=== PATIENT | female | born 1980 | race Caucasian/White ===

== ENCOUNTER 2017-08-20 08:06 | Day surgery (SDC) | payer OTHER ==
[2017-08-20] MEDS ORDERED: Ringers Lactate 1,000 ML IV ONE ×3 (08:21→14:37)
[2017-08-20] MEDS ORDERED: SCOPOLAMINE HYDROBROMIDE PATCH TD ONE (08:21)
[2017-08-20] MEDS ORDERED: CEFAZOLIN/SWI 1gm 1 GM/10 ML SYR ONE (08:21)
[2017-08-20 08:24] LABS: Specific Gravity >= 1.030 (1.005-1.030)
[2017-08-20 08:26] LABS: Absolute Lymphocytes (CBC) 1.9 K/uL (0.7-4.9); Absolute Monocytes 0.4 K/uL (0.1-1.3); Basophils % 0.4 % (0-1.3); Eosinophils % 0.5 % (0-4.4); Hematocrit 40.7 % (36.0-45.0); Lymphocytes % 25.6 % (15.3-44.8); MCH 30.9 pg (27.0-35.0); MCV 94.2 fL (80-100); MPV 10.2 fL (7.6-11.3); Monocytes % 4.9 % (3.3-12.3); RBC Red Blood Cell Count 4.32 M/uL (3.86-4.86)
[2017-08-20] MEDS ORDERED: BACITRACIN 50000 UNIT VIAL ONE (09:01)
[2017-08-20] MEDS ORDERED: GENTAMICIN SULF 80 MG/2ML INJ ONE (09:01)
[2017-08-20] MEDS ORDERED: NS 0.9% VIAL 20 ML ONE (09:01)
[2017-08-20] MEDS ORDERED: CEFAZOLIN SODIUM 1 GM/VIAL ONE ×2 (09:01→12:10)
[2017-08-20] MEDS ORDERED: MIDAZOLAM HCL 2 MG/2 ML INJ ONE (09:02)
[2017-08-20] MEDS ORDERED: DEXAMETHASONE 10 MG/ML VIAL ONE (09:02)
[2017-08-20] MEDS ORDERED: PROPOFOL 200 MG/20 ML VIAL IV ONE (09:02)
[2017-08-20] MEDS ORDERED: LIDOCAINE 2% MPF 5 ML VIAL ONE (09:03)
[2017-08-20] MEDS ORDERED: ROCURONIUM 50 MG/5 ML VIAL IV ONE ×2 (09:03→10:57)
[2017-08-20] MEDS ORDERED: FENTANYL CITR 250 MCG/5 ML ONE (09:03)
[2017-08-20] MEDS ORDERED: ONDANSETRON HCL 40 MG/20 ML VIAL ONE ×2 (09:03→13:44)
[2017-08-20] MEDS ORDERED: LANO/MINERAL OIL/PETRO 3.5 GM ONE (09:51)
[2017-08-20] MEDS ORDERED: NA CHLORIDE 0.9% 1,000 ML ONE (10:28)
[2017-08-20] MEDS ORDERED: EPHEDRINE SULF 50 MG/ML SYR ONE (10:50)
[2017-08-20] MEDS ORDERED: NS 0.9% VIAL 10 ML ONE (12:10)
[2017-08-20] MEDS ORDERED: KETOROLAC 30 MG/ML INJ ONE (13:43)
[2017-08-20] MEDS ORDERED: GLYCOPYRROLATE 0.2 MG/ML SYR ONE (13:45)
[2017-08-20] MEDS ORDERED: Mastisol Adhesive Liq ONE ×2 (13:46)
[2017-08-20] MEDS ORDERED: NEOSTIGMINE 1 MG/ML -5 ML SYRINGE ONE (13:46)
[2017-08-20] MEDS ORDERED: PROMETHAZINE 25 MG/ML VIAL ONE (14:15)
[2017-08-20] MEDS: MEPERIDINE HCL 25 MG/0.5 ML ONE ×2 (14:17→14:29)
[2017-08-20 14:28] LABS: Hematocrit 31.2 % (36.0-45.0)
[2017-08-20] MEDS ORDERED: METOCLOPRAMIDE 10 MG/2mL INJ ONE (14:34)
[2017-08-20] MEDS ORDERED: MEPERIDINE HCL 25 MG/0.5 ML ONE (14:36)
[2017-08-20] MEDS ORDERED: HYDROCODONE/APAP 10/325 TAB ONE (15:33)
[2017-08-20] MEDS ORDERED: CYCLOBENZAPRINE 10 MG TAB PO ONE (18:00)
--- NOTE | 2017-08-21 00:44 | OP ---
Surgeon: Yonis Brown MD Yarn Rewinder: Raymundo. Preoperative Diagnosis: Breast descent. Postoperative Diagnosis: Breast descent. Procedure Performed: Breast lift. Anesthesia: General. Description Of Procedure: After satisfactory induction of general anesthesia, breast was prepped and draped with DuraPrep and dry sterile drapes were applied in the usual manner. A 42 template used to outline the right areola and transverse curvilinear inferior incisions were made and the skin was de -epithelialized with the dermabrader or EpiCut. The transverse incision made with electrocautery. F lap was thinned to 1.2 cm thickness and flap was elevated towards the sternum, clavicle, anterior axi llary line. Then the lateral incision was made. The de-epithelialized tissue was then formed into c one with 2-0 PDS suture. Straps were elevated at 12 o'clock, 1:30, and 3 o'clock position. Straps w ere then woven in and out of the pectoralis major muscle, back to the base of the cone, back to thems elves, eventually tied with 2-0 PDS. The 3 o'clock position straps were sewn over the sternum at 3 o 'clock position with 2-0 Ethibond. Wound was carefully stapled shut. Left side done in mirror image manner. We then returned to right side, irrigated the wound with antibiotic solution. A 10 CHECO brou ght out of the axilla and sewn in place with 2-0 silk and the wounds closed in layers 3-0 Vicryl on s ubcu 3-0 PDS running subcuticular tied in the vertical meridian of the breast. Left side done in franky ror image manner. The patient was sat up. Site for new nipple-areolar complex was marked out. Core excision was done with 42 template. Nipple was delivered and sewn with interrupted 4-0 PDS, followe d by 4-0 PDS running subcuticular. Tincture of benzoin, Steri-Strips, 5 x 5s, fluffs, and Dick wrap. The patient tolerated the procedure well. Left side 12 g removed, right 30 g. GH/MODL Voice ID: [id number] Report ID: [id number]
== END 2017-08-20 17:40 | disposition home or self-care (01) ==
LOC: OR 08:06
PROVIDERS: ATTEND Specialist
PROC: 0HSV0ZZ Reposition Bilateral Breast, Open Approach (ICD-10-PCS; principal; 2017-08-20 09:00)
DX: N64.81 Ptosis of breast (principal); N60.91 Unspecified benign mammary dysplasia of right breast; N60.42 Mammary duct ectasia of left breast; N60.41 Mammary duct ectasia of right breast
CPT/HCPCS: 36415; 81025; 85014; 85018; 85025; 88305; J0690; J1100; J1580; J2175; J2250; J2405; J2550; J2710; J2765; J7030